=== PATIENT | female | born 1990 | race Caucasian/White ===

== ENCOUNTER 2018-02-18 00:05 | Inpatient (IN) | payer OTHER, MEDICAID ==
[~2018-02-18] VITALS: Ht 152.4 cm; Wt 83.5 kg
[2018-02-18] MEDS ORDERED: OXYTOCIN/0.9 % SODIUM CHLORIDE 1,000 ML IV SCH (00:27)
[2018-02-18] MEDS ORDERED: DINOPROSTONE 10 MG SUPP VG ONE (00:30)
[2018-02-18] MEDS ORDERED: TERBUTALINE SULFATE 1 MG/ML VIAL SUBCUT ONE (00:30)
[2018-02-18] MEDS ORDERED: AMPICILLIN SODIUM 2 GM VIAL ONE (00:53)
[2018-02-18] MEDS ORDERED: AMPICILLIN SODIUM 2 GM in NS 100 ML IV ONE (01:00)
[2018-02-18] MEDS: LR 1,000 ML IV SCH ×3 (01:00→16:45)
[2018-02-18 01:06] VITALS: BP_SYST 125
[2018-02-18 01:27] LABS: BASOPHILS % (AUTO) 0.4 % (0.0-2.0); EOSINOPHILS # (AUTO) 0.1 K/uL (0.0-0.4); EOSINOPHILS % (AUTO) 1.5 % (0.0-4.0); HEMATOCRIT 31.9 % (36-48); HEMOGLOBIN 10.6 g/dL (12.0-16.0); LYMPHOCYTES # (AUTO) 1.8 K/uL (1.0-5.5); MEAN CORPUSCULAR HEMOGLOBIN 28 pg (27-31); MEAN CORPUSCULAR HGB CONC 33 % (32-36); MEAN CORPUSCULAR VOLUME 85 fL (79.0-98.0); MONOCYTES # (AUTO) 0.7 K/uL (0.0-1.0); MONOCYTES % (AUTO) 8.4 % (1.7-9.3); NEUTROPHILS # (AUTO) 5.7 K/uL (1.8-7.7); NEUTROPHILS % (AUTO) 67.7 % (40.0-70.0); PLATELET COUNT (AUTO) 273 K/uL (130-430); RED BLOOD CELL COUNT(AUTO) 3.77 MIL/uL (4.2-6.2); RED CELL DISTRIBUTION WIDTH 14.3 % (9.0-15.0); WHITE BLOOD COUNT (AUTO) 8.3 K/uL (4.8-10.8)
[2018-02-18] MEDS ORDERED: AMPICILLIN SODIUM 1 GM VIAL ONE ×3 (04:41→20:50)
[2018-02-18] MEDS: AMPICILLIN SODIUM 1 GM in NS 50 ML IV SCH ×5 (05:00→21:00)
[2018-02-18] MEDS: NALBUPHINE HCL 10 MG/ML AMP IVP PRN (07:48)
[2018-02-18] MEDS ORDERED: ONDANSETRON HCL 4 MG/2 ML VIAL IVP ONE (11:15)
[2018-02-18] MEDS ORDERED: BUPIVACAINE /DEX PF 0.75% SPINAL 2 ML AMP INJ ONE (11:15)
[2018-02-18] MEDS ORDERED: ePHEDrine sulfate 50 MG/ML VIAL IVP ONE (11:15)
[2018-02-18] MEDS ORDERED: NS 1000 ML IV.SOLN IV ONE (11:15)
[2018-02-18] MEDS ORDERED: OXYTOCIN 10 UNIT/ML VIAL IV ONE (11:15)
[2018-02-18] MEDS ORDERED: MORPHINE SULFATE 10MG/10ML PF AMP EP ONE (11:15)
[2018-02-18] MEDS ORDERED: LR 1,000 ML IV.SOLN IV ONE (11:15)
[2018-02-18] MEDS ORDERED: NS IRRIG SOLN 1000 ML IR ONE (11:15)
[2018-02-18] MEDS ORDERED: METOCLOPRAMIDE HCL 10 MG/2 ML VIAL IVP ONE (11:15)
[2018-02-18] MEDS ORDERED: ROPIVACAINE 0.2% 100 ML ONE ×2 (12:56→22:23)
[2018-02-18] MEDS ORDERED: fentaNYL CITRATE/PF 100 MCG/2 ML AMP ONE (13:04)
[2018-02-18] MEDS ORDERED: FENT2mCg/mL-ROPIVA0.2%/NS EPID 100 ML EP SCH (13:30)
[2018-02-18] MEDS ORDERED: fentaNYL CITRATE/PF 100 MCG/2 ML AMP EP ONE ×2 (13:30)
[2018-02-18] MEDS ORDERED: LR 500 ML IV ONE ×2 (13:30)
[2018-02-18] MEDS ORDERED: ePHEDrine sulfate 50 MG/ML VIAL IVP PRN ×2 (13:30)
[2018-02-18] MEDS ORDERED: ONDANSETRON HCL 4 MG/2 ML VIAL ONE ×2 (13:34→19:13)
[2018-02-18] MEDS ORDERED: ONDANSETRON HCL 4 MG/2 ML VIAL IVP PRN (19:15)
[2018-02-19] MEDS ORDERED: AMPICILLIN SODIUM 1 GM VIAL ONE ×2 (00:51→04:51)
[2018-02-19] MEDS: AMPICILLIN SODIUM 1 GM in NS 50 ML IV SCH ×3 (01:00→09:01)
[2018-02-19] MEDS: LR 1,000 ML IV SCH (01:20)
[2018-02-19] MEDS ORDERED: ROPIVACAINE 0.2% 100 ML ONE (06:44)
[2018-02-19] MEDS: NALBUPHINE HCL 10 MG/ML AMP IVP PRN (09:51)
[2018-02-19] MEDS ORDERED: LR 1,000 ML IV ONE (10:05)
[2018-02-19] MEDS ORDERED: CITRIC ACID/SODIUM CITRATE 30 ML UDC PO ONE (10:15)
[2018-02-19] MEDS ORDERED: CEFAZOLIN 2 GM IVPB PREMIX 50 ML IV ONE (10:15)
[2018-02-19] MEDS ORDERED: NALOXONE HCL 1 MG in NACL 0.9% 1,000 ML IV PRN ×4 (10:19)
[2018-02-19] MEDS ORDERED: LR 1,000 ML IV SCH ×3 (10:19→13:28)
[2018-02-19] MEDS ORDERED: NALOXONE HCL 0.4 MG/ML AMP (NARCAN) IVP PRN ×4 (10:30→13:00)
[2018-02-19] MEDS ORDERED: ONDANSETRON HCL 4 MG/2 ML VIAL IVP PRN ×3 (10:30→13:00)
[2018-02-19] MEDS ORDERED: DIPHENHYDRAMINE INJ 50 MG/ML VIAL IVP PRN (10:30)
[2018-02-19] MEDS ORDERED: HYDROmorphone 1 MG INJ. 1 MG/ML AMPUL IVP PRN (10:30)
[2018-02-19] MEDS ORDERED: DIPHENHYDRAMINE HCL 50 MG CAPSULE PO PRN (10:30)
[2018-02-19] MEDS ORDERED: HYDROmorphone 2 MG/ML VIAL IVP PRN ×2 (10:30)
[2018-02-19] MEDS ORDERED: KETOROLAC TROMETHAMINE 60 MG/2 ML VIAL IM PRN ×2 (10:30→13:00)
[2018-02-19] MEDS ORDERED: MEPERIDINE HCL/PF 25 MG/ML DISP.SYRIN IVP PRN ×2 (10:30)
[2018-02-19] MEDS ORDERED: DIPHENHYDRAMINE INJ 50 MG/ML VIAL IM PRN (13:00)
[2018-02-19] MEDS ORDERED: MORPHINE SULFATE 10MG/10ML PF AMP SP SCH (13:00)
[2018-02-19] MEDS ORDERED: OXYTOCIN/0.9 % SODIUM CHLORIDE 1,000 ML IV ONE ×2 (13:28→14:06)
[2018-02-19 13:30] VITALS: BP_SYST 120
[2018-02-19] MEDS ORDERED: RHO(D) IMMUNE GLOBULIN/MALTOSE 1500 UNITS/1.3 ML (WINHRO) IM PRN (13:30)
[2018-02-19] MEDS ORDERED: LANOLIN 7 GM OINT. TP PRN (13:30)
[2018-02-19] MEDS ORDERED: MEASLES,MUMPS&RUBELLA VACC/PF 12500 UNIT/0.5 ML VIAL SUBQ PRN (13:30)
[2018-02-19] MEDS ORDERED: ANUSOL 1 EA SUPP.RECT (PREPARATION H) RC PRN (13:30)
[2018-02-19] MEDS ORDERED: DIPH-TET-PERTUS Vaccine 0.5 ML VIAL (ADACEL) I.M. PRN (13:30)
[2018-02-19] MEDS ORDERED: BISACODYL 10 MG/SUPPOSITORY RC PRN (13:30)
[2018-02-19] MEDS ORDERED: ACETAMINOPHEN 325 MG TABLET PO PRN (16:00)
[2018-02-19] MEDS ORDERED: OXYCODONE/ACETAMINOPHEN 5-325 TABLET PO PRN (16:00)
[2018-02-19] MEDS ORDERED: TEMAZEPAM 15 MG CAPSULE PO PRN (21:00)
[2018-02-20] MEDS: IBUPROFEN 600 MG TABLET PO SCH ×4 (06:12→23:50)
[2018-02-20] MEDS ORDERED: ROPIVACAINE 40 MG/20 ML AMP EP ONE (07:03)
[2018-02-20 07:14] LABS: BASOPHILS % (AUTO) 0.2 % (0.0-2.0); EOSINOPHILS # (AUTO) 0.1 K/uL (0.0-0.4); EOSINOPHILS % (AUTO) 0.4 % (0.0-4.0); HEMATOCRIT 29.5 % (36-48); LYMPHOCYTES # (AUTO) 1.6 K/uL (1.0-5.5); LYMPHOCYTES % (AUTO) 12.3 % (20.5-51.5); MEAN CORPUSCULAR HEMOGLOBIN 29 pg (27-31); MEAN CORPUSCULAR HGB CONC 34 % (32-36); MEAN CORPUSCULAR VOLUME 86 fL (79.0-98.0); MONOCYTES % (AUTO) 7.6 % (1.7-9.3); NEUTROPHILS # (AUTO) 10.2 K/uL (1.8-7.7); NEUTROPHILS % (AUTO) 79.5 % (40.0-70.0); PLATELET COUNT (AUTO) 257 K/uL (130-430); RED BLOOD CELL COUNT(AUTO) 3.43 MIL/uL (4.2-6.2); RED CELL DISTRIBUTION WIDTH 14.6 % (9.0-15.0); WHITE BLOOD COUNT (AUTO) 12.9 K/uL (4.8-10.8)
[2018-02-20] MEDS: SIMETHICONE 80 MG TAB.CHEW PO PRN ×2 (12:00→18:51)
[2018-02-20] MEDS: DOCUSATE SODIUM 100 MG CAPSULE PO PRN ×2 (12:00→23:50)
[2018-02-20] MEDS: OXYCODONE/ACETAMINOPHEN 5-325 TABLET PO PRN (18:52)
[2018-02-21] MEDS: IBUPROFEN 600 MG TABLET PO SCH ×3 (05:26→18:35)
[2018-02-21] MEDS: DOCUSATE SODIUM 100 MG CAPSULE PO PRN ×2 (09:30→18:36)
[2018-02-21] MEDS: OXYCODONE/ACETAMINOPHEN 5-325 TABLET PO PRN (09:30)
[2018-02-21] MEDS: SENNOSIDES/DOCUSATE SODIUM 1 TAB TABLET(SENOKOT-S) PO PRN ×2 (09:30→18:36)
[2018-02-22] MEDS: IBUPROFEN 600 MG TABLET PO SCH ×3 (00:23→12:16)
[2018-02-22] MEDS: DOCUSATE SODIUM 100 MG CAPSULE PO PRN (00:23)
[2018-02-22] MEDS: SENNOSIDES/DOCUSATE SODIUM 1 TAB TABLET(SENOKOT-S) PO PRN (12:16)
== END 2018-02-22 15:05 | disposition home or self-care (01) | DRG 766 ==
LOC: EDBD → SPU 00:05
PROVIDERS: ADMIT Obstetrics & Gynecology; ATTEND Obstetrics & Gynecology
PROC: 10D00Z1 Extraction of Products of Conception, Low, Open Approach (ICD-10-PCS; principal; 2018-02-19 11:00)
DX: O48.0 Post-term pregnancy (principal); O61.9 Failed induction of labor, unspecified; F32.9 Major depressive disorder, single episode, unspecified; O99.62 Diseases of the digestive system complicating childbirth; K21.9 Gastro-esophageal reflux disease without esophagitis; O99.824 Streptococcus B carrier state complicating childbirth; Z3A.40 40 weeks gestation of pregnancy; O99.344 Other mental disorders complicating childbirth; Z37.0 Single live birth; O62.0 Primary inadequate contractions; Z82.49 Family history of ischemic heart disease and other diseases of the circulatory system; Z81.8 Family history of other mental and behavioral disorders; Z87.410 Personal history of cervical dysplasia
CPT/HCPCS: 36415; 36600; 71045; 81002-TC; 82803-TC; 85025; 86592; 86886; 86900; 86901; 94760; J0290; J0690; J2274; J2300; J2405; J2590; J2765; J2790; J2795; J3010; J3490; J7030; J7120